=== PATIENT | female | born 1965 | race Caucasian/White ===

== ENCOUNTER 2017-02-11 23:44 | Emergency (ER) | payer OTHER ==
[~2017-02-11] VITALS: Ht 160 cm; Wt 60.9 kg
[2017-02-12 00:02] VITALS: BP 137/75; PULSE 70; RESP 12; TEMP 98.1; O2SAT 95
== END 2017-02-12 01:37 | disposition left against medical advice (07) ==
LOC: PHED 23:44
DX: T78.40XA Allergy, unspecified, initial encounter (principal); Z53.21 Procedure and treatment not carried out due to patient leaving prior to being seen by health care provider
CPT/HCPCS: 99281